=== PATIENT | male | born 1980 | race Hispanic/Latino ===

== ENCOUNTER 2018-01-02 15:01 | Emergency (ER) | payer SELFPAY ==
[2018-01-02] MEDS ORDERED: Adacel (T-DAP) 0.5 ML VIAL ONE (15:26)
--- NOTE | 2018-01-02 16:15 | RAD ---
LEFT THUMB: 01/02/18 Three views. HISTORY: Injury with pain. There has been amputation of the tip of the left thumb with soft tissue amputation noted. There has a lso been amputation of the distal aspect of the tuft of the distal phalanx. There is no fracture invo lving the residual bone of the distal phalanx. IMPRESSION: Amputation distal aspect of the thumb. POS: [facility]
== END 2018-01-02 16:20 | disposition home or self-care (01) ==
LOC: NAV ERS 15:01
DX: S68.012A Complete traumatic metacarpophalangeal amputation of left thumb, initial encounter (principal); I10 Essential (primary) hypertension; W27.0XXA Contact with workbench tool, initial encounter
CPT/HCPCS: 90471; 90715